=== PATIENT | female | born 1990 | race Caucasian/White ===

== ENCOUNTER 2016-07-14 15:38 | Emergency (ER) | payer BC ==
--- NOTE | 2016-07-14 16:33 | ER Document Report ---
ED Medical Screen (RME) - General Stated Complaint: DIFFICULTY BREATHING Notes: patient is a 26 year old female with LEANN p/w palpitations, h/a, shortness of breath for about one week but worse today I have greeted and performed a rapid initial assessment of this patient. A comprehensive ED assessment and evaluation of the patient, analysis of test results and completion of the medical decision making process will be conducted by additional ED providers. TRAVEL OUTSIDE OF THE [place] IN LAST 30 DAYS: No - Related Data Allergies/Adverse Reactions: No Known Allergies Allergy (Verified 07/14/16 16:28) Past Medical History - Social History Chew tobacco use (# tins/day): No Frequency of alcohol use: None Drug Abuse: None - Past Medical History Cardiac Medical History: Denies: Hx Coronary Artery Disease, Hx Heart Attack, Hx Hypertension Pulmonary Medical History: Denies: Hx Asthma, Hx Bronchitis, Hx COPD, Hx Pneumonia Neurological Medical History: Denies: Hx Cerebrovascular Accident, Hx Seizures Renal/ Medical History: Denies: Hx Peritoneal Dialysis Musculoskeltal Medical History: Denies Hx Arthritis - Immunizations Hx Diphtheria, Pertussis, Tetanus Vaccination: Yes - 15 December 2010 Physical Exam - Vital signs Vitals: Temp Pulse Resp BP Pulse Ox 98.1 F 84 22 H 137/75 H 99 07/14/16 16:00 07/14/16 16:00 07/14/16 16:00 07/14/16 16:00 07/14/16 16:00 Course - Vital Signs Vital signs: Temp Pulse Resp BP Pulse Ox 98.1 F 84 22 H 137/75 H 99 07/14/16 16:00 07/14/16 16:00 07/14/16 16:00 07/14/16 16:00 07/14/16 16:00
[2016-07-14 17:05] LABS: ABSOLUTE EOSINOPHILS # (AUTO) 0.1 10^3/uL (0.0-0.6); ABSOLUTE LYMPHOCYTES (AUTO) 2.1 10^3/uL (0.5-4.7); ABSOLUTE MONOCYTES (AUTO) 0.3 10^3/uL (0.1-1.4); ABSOLUTE NEUT (AUTO) 3.8 10^3/uL (1.7-8.2); BASOPHILS % (AUTO) 0.6 % (0-2); EOSINOPHILS % (AUTO) 1.4 % (0-6); HEMATOCRIT 38.3 % (36.0-47.0); HEMOGLOBIN 13.1 g/dL (12.0-15.5); LYMPHOCYTES % (AUTO) 33.6 % (13-45); MEAN CORPUSCULAR HEMOGLOBIN 29.8 pg (27.0-33.4); MEAN CORPUSCULAR HGB CONC 34.2 g/dL (32.0-36.0); MEAN CORPUSCULAR VOLUME 87 fl (80-97); MONOCYTES % (AUTO) 4.4 % (3-13); RED CELL DISTRIBUTION WIDTH 12.7 % (11.5-14.0); WHITE BLOOD COUNT 6.3 10^3/uL (4.0-10.5)
[2016-07-14 17:44] LABS: ALANINE AMINOTRANSFERASE 31 U/L (9-52); ALBUMIN 4.1 g/dL (3.5-5.0); ALKALINE PHOSPHATASE 40 U/L (38-126); ANION GAP 11 (5-19); ASPARTATE AMINO TRANSFERASE 20 U/L (14-36); BILIRUBIN,TOTAL 0.4 mg/dL (0.2-1.3); BLOOD UREA NITROGEN 16 mg/dL (7-20); CARBON DIOXIDE 26 mmol/L (22-30); CHLORIDE 107 mmol/L (98-107); CREATININE RESULT 0.84 mg/dL (0.52-1.25); GLUCOSE 106 mg/dL (75-110); POTASSIUM 4.1 mmol/L (3.6-5.0); SODIUM 143.9 mmol/L (137-145); TOTAL PROTEIN 7.3 g/dL (6.3-8.2)
--- NOTE | 2016-07-14 18:19 | ER Document Report ---
ED General - General Chief Complaint: Anemia Stated Complaint: DIFFICULTY BREATHING Time seen by provider: 18:14 Mode of Arrival: Ambulatory Information source: Patient, Parent TRAVEL OUTSIDE OF THE [place] IN LAST 30 DAYS: No - HPI Patient complains to provider of: dizziness Onset: Other - Pt. has h/o iron deficiency anemia states that for the past 1-2 days has had episodes of the room spinning around with nausea with some SOB and palpitations. "Feels like a blurry sensation inside my head." - Related Data Allergies/Adverse Reactions: No Known Allergies Allergy (Verified 07/14/16 16:28) Past Medical History - Social History Smoking Status: Never Smoker Cigarette use (# per day): No Chew tobacco use (# tins/day): No Frequency of alcohol use: None Drug Abuse: None Family History: Reviewed & Not Pertinent Patient has suicidal ideation: No Patient has homicidal ideation: No - Past Medical History Cardiac Medical History: Denies: Hx Coronary Artery Disease, Hx Heart Attack, Hx Hypertension Pulmonary Medical History: Denies: Hx Asthma, Hx Bronchitis, Hx COPD, Hx Pneumonia Neurological Medical History: Denies: Hx Cerebrovascular Accident, Hx Seizures Renal/ Medical History: Denies: Hx Peritoneal Dialysis Musculoskeltal Medical History: Denies Hx Arthritis - Immunizations Hx Diphtheria, Pertussis, Tetanus Vaccination: Yes - 15 December 2010 Review of Systems - Review of Systems Constitutional: No symptoms reported EENT: No symptoms reported Cardiovascular: See HPI, Palpitations Respiratory: No symptoms reported Gastrointestinal: No symptoms reported Neurological/Psychological: See HPI -: Yes All other systems reviewed and negative Physical Exam - Vital signs Vitals: Temp Pulse Resp BP Pulse Ox 98.1 F 84 22 H 137/75 H 99 07/14/16 16:00 07/14/16 16:00 07/14/16 16:00 07/14/16 16:00 07/14/16 16:00 - General General appearance: Appears well In distress: None - HEENT Head: Normocephalic Extraocular movements intact: Yes Pupils: PERRL Ears: Normal Tympanic membrane: Normal Sinus: Normal Mouth/Lips: Normal Mucous membranes: Normal Pharynx: Normal Neck: Normal - Respiratory Respiratory status: No respiratory distress Breath sounds: Normal - Cardiovascular Rhythm: Regular Heart sounds: Normal auscultation - Abdominal Inspection: Normal Bowel sounds: Normal Tenderness: Nontender - Neurological Neuro grossly intact: Yes Cognition: Normal Orientation: AAOx4 Speech: Normal Cranial nerves: Normal Cerebellar coordination: Normal Motor strength normal: LUE, RUE, LLE, RLE 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 felt somewhat better at time of d/c -- expressed desire to go home with mom - Vital Signs Vital signs: Temp Pulse Resp BP Pulse Ox 98.1 F 84 22 H 137/75 H 99 07/14/16 16:00 07/14/16 16:00 07/14/16 16:00 07/14/16 16:00 07/14/16 16:00 - Laboratory Result Diagrams: 07/14/16 16:52 07/14/16 16:52 - EKG Interpretation by Fl EKG shows normal: Sinus rhythm Rate: Normal Rhythm: NSR - nsr without acute change Discharge - Discharge Clinical Impression: Vertigo Condition: Stable Disposition: HOME, SELF-CARE Additional Instructions: rest, take meds as prescribed, return if worse Prescriptions: Meclizine HCl [Antivert 25 mg Tablet] 25 mg PO TID PRN #21 tablet PRN Reason:
[2016-07-14 19:16] VITALS: BP 135/72
--- NOTE | 2016-07-14 19:16 | EKG REPORT ---
SEVERITY:- ABNORMAL ECG - SINUS RHYTHM FIRST DEGREE AV BLOCK PROBABLE LEFT ATRIAL ABNORMALITY : Confirmed by: Calixto Robles MD 14-Jul-2016 19:16:16
--- NOTE | 2016-07-17 21:50 | EKG REPORT ---
SEVERITY:- NORMAL ECG - SINUS RHYTHM IRBBB : Confirmed by: Hood Otoole 17-Jul-2016 21:49:56
== END 2016-07-14 19:16 | disposition home or self-care (01) ==
LOC: ER 15:38
DX: R42 Dizziness and giddiness (principal); R11.0 Nausea; R06.02 Shortness of breath; R00.2 Palpitations; Z86.2 Personal history of diseases of the blood and blood-forming organs and certain disorders involving the immune mechanism
CPT/HCPCS: 36415; 80053; 85025; 93005; 93010; 99285

== ENCOUNTER 2016-07-24 20:14 | Emergency (ER) | payer BC ==
[2016-07-24] MEDS ORDERED: HYDROMORPHONE HCL INJ/PF 2 MG/ML AMPULE IV ONE (23:16)
[2016-07-24] MEDS ORDERED: DIAZEPAM 5 MG TABLET PO ONE (23:18)
[2016-07-24] MEDS ORDERED: NORMAL SALINE 1000 ML 1,000 ML IV ONE (23:18)
--- NOTE | 2016-07-24 23:22 | ER Document Report ---
ED General - General Chief Complaint: Back Pain Stated Complaint: BACK PAIN Notes: Patient is a 26-year-old female with past history of chronic iron deficiency requiring iron transfusions who presents with diffuse low back and leg spasms today after receiving an iron infusion. States that she's had similar symptoms in the past with iron infusions but never to this degree of intensity. Nothing improves or worsens this pain which is described as a severe, constant, cramping pain. She has not seen her primary care doctor regarding today's concerns. Denies any weakness, numbness, vomiting or fever. Denies any trauma to the back or legs. TRAVEL OUTSIDE OF THE [place] IN LAST 30 DAYS: No - Related Data Allergies/Adverse Reactions: morphine Allergy (Unknown, Verified 07/24/16 20:45) Past Medical History - General Information source: Patient - Social History Smoking Status: Never Smoker Frequency of alcohol use: None Drug Abuse: None Lives with: Parents Family History: Reviewed & Not Pertinent - Past Medical History Cardiac Medical History: Denies: Hx Coronary Artery Disease, Hx Heart Attack, Hx Hypertension Pulmonary Medical History: Denies: Hx Asthma, Hx Bronchitis, Hx COPD, Hx Pneumonia Neurological Medical History: Reports: Hx Migraine. Denies: Hx Cerebrovascular Accident, Hx Seizures Renal/ Medical History: Denies: Hx Peritoneal Dialysis Musculoskeltal Medical History: Denies Hx Arthritis Surgical Hx: Negative - Immunizations Hx Diphtheria, Pertussis, Tetanus Vaccination: Yes - 15 December 2010 Review of Systems - Review of Systems Notes: Constitutional: Negative for fever. HENT: Negative for sore throat. Eyes: Negative for visual changes. Cardiovascular: Negative for chest pain. Respiratory: Negative for shortness of breath. Gastrointestinal: Negative for abdominal pain, vomiting or diarrhea. Genitourinary: Negative for dysuria. Musculoskeletal: Positive for leg and back spasms Skin: Negative for rash. Neurological: Negative for headaches, weakness or numbness. 10 point ROS negative except as marked above and in HPI. Physical Exam - Vital signs Vitals: Resp Pulse Ox 23 H 98 07/24/16 20:32 07/24/16 20:32 Interpretation: Normal Notes: PHYSICAL EXAMINATION: GENERAL: Appears mildly uncomfortable but in no acute distress HEAD: Atraumatic, normocephalic. EYES: Pupils equal round and reactive to light, extraocular movements intact, sclera anicteric, conjunctiva are normal. ENT: nares patent, oropharynx clear without exudates. Moist mucous membranes. NECK: Normal range of motion, supple without lymphadenopathy LUNGS: Breath sounds clear to auscultation bilaterally and equal. No wheezes rales or rhonchi. HEART: Regular rate and rhythm without murmurs ABDOMEN: Soft, nontender, normoactive bowel sounds. No guarding, no rebound. No masses appreciated. EXTREMITIES: Normal range of motion, her calf muscles are spasming bilaterally. NEUROLOGICAL: No focal neurological deficits. Moves all extremities spontaneously and on command. PSYCH: Normal mood, normal affect. SKIN: Warm, Dry, normal turgor, no rashes or lesions noted. Course - Re-evaluation Re-evalutation: 07/24/16 23:19 Patient presents with diffuse muscle spasms and aches after receiving an iron infusion. States that she's had similar symptoms with a prior infusion but there was also spontaneously. At time of my assessment, patient is tearful and appears to be in discomfort. No distress. She has no midline back tenderness and her clinical symptoms are not consistent with a musculoskeletal back pain suspect this is related to diffuse muscle spasms in the setting of the iron infusion. She will be provided analgesia and basic laboratories will be obtained to exclude rhabdomyolysis. 07/25/16 00:44 Patient has had resolution of her pain at this time. Laboratories unremarkable. At this time will discharge with return precautions and follow-up recommendations. Verbal discharge instructions given a the bedside and opportunity for questions given. Medication warnings reviewed. Patient is in agreement with this plan and has verbalized understanding of return precautions and the need for primary care follow-up in the next 24-72 hours. - Vital Signs Vital signs: Temp Pulse Resp BP Pulse Ox 97.6 F 14 120/67 100 07/25/16 00:57 07/25/16 00:50 07/25/16 00:50 07/25/16 00:50 - Laboratory Result Diagrams: 07/24/16 23:41 07/24/16 23:41 Laboratory results interpreted by me: 07/24/16 07/24/16 23:41 23:41 WBC 13.2 H Hgb 11.8 L Hct 34.7 L Seg Neutrophils % 92.7 H Lymphocytes % 5.8 L Monocytes % 1.5 L Absolute Neutrophils 12.2 H Chloride 109 H Carbon Dioxide 20 L Glucose 133 H Discharge - Discharge Clinical Impression: Muscle spasms of both lower extremities Condition: Good Disposition: HOME, SELF-CARE Additional Instructions: Please return to the emergency room immediately if you experience any concerning symptoms including high fevers, severe headache, chest pain, difficulty breathing, abdominal pain, slurred speech, numbness or weakness in your arms or legs, or any other symptom that concerns you.
[2016-07-24 23:58] LABS: ABSOLUTE LYMPHOCYTES (AUTO) 0.8 10^3/uL (0.5-4.7); ABSOLUTE MONOCYTES (AUTO) 0.2 10^3/uL (0.1-1.4); ABSOLUTE NEUT (AUTO) 12.2 10^3/uL (1.7-8.2); HEMATOCRIT 34.7 % (36.0-47.0); HEMOGLOBIN 11.8 g/dL (12.0-15.5); HGB HCT DIFFERENCE 0.7; LYMPHOCYTES % (AUTO) 5.8 % (13-45); MEAN CORPUSCULAR HEMOGLOBIN 29.4 pg (27.0-33.4); MEAN CORPUSCULAR HGB CONC 34.2 g/dL (32.0-36.0); MEAN CORPUSCULAR VOLUME 86 fl (80-97); MONOCYTES % (AUTO) 1.5 % (3-13); RED BLOOD COUNT 4.02 10^6/uL (3.72-5.28); RED CELL DISTRIBUTION WIDTH 12.9 % (11.5-14.0); SEGMENTED NEUTROPHILS % (AUTO) 92.7 % (42-78); WHITE BLOOD COUNT 13.2 10^3/uL (4.0-10.5)
[2016-07-25 00:24] LABS: ANION GAP 11 (5-19); BLOOD UREA NITROGEN 16 mg/dL (7-20); CARBON DIOXIDE 20 mmol/L (22-30); CHLORIDE 109 mmol/L (98-107); CREATINE KINASE 90 U/L (30-135); GLUCOSE 133 mg/dL (75-110); POTASSIUM 4.3 mmol/L (3.6-5.0); SODIUM 139.8 mmol/L (137-145)
[2016-07-25 00:58] VITALS: BP 120/67
== END 2016-07-25 00:59 | disposition home or self-care (01) ==
LOC: ER 20:14
DX: R25.2 Cramp and spasm (principal); M54.9 Dorsalgia, unspecified; M54.5 Low back pain
CPT/HCPCS: 99284; 96374; 36415; 82550; 84703; 85025; 80048; J1170

== ENCOUNTER → 2016-08-16 | Outpatient (CLI) | payer BC ==
[2016-08-16 10:02] LABS: HEMATOCRIT 36.8 % (36.0-47.0); HEMOGLOBIN 12.5 g/dL (12.0-15.5); HGB HCT DIFFERENCE 0.7; MEAN CORPUSCULAR HEMOGLOBIN 30.2 pg (27.0-33.4); MEAN CORPUSCULAR VOLUME 89 fl (80-97); RED BLOOD COUNT 4.14 10^6/uL (3.72-5.28); RED CELL DISTRIBUTION WIDTH 14.5 % (11.5-14.0); WHITE BLOOD COUNT 5.2 10^3/uL (4.0-10.5)
[2016-08-16 10:10] LABS: ALANINE AMINOTRANSFERASE 34 U/L (9-52); ALBUMIN 4.2 g/dL (3.5-5.0); ALKALINE PHOSPHATASE 44 U/L (38-126); ANION GAP 9 (5-19); ASPARTATE AMINO TRANSFERASE 20 U/L (14-36); BILIRUBIN,TOTAL 0.6 mg/dL (0.2-1.3); BLOOD UREA NITROGEN 17 mg/dL (7-20); CALCIUM 9.8 mg/dL (8.4-10.2); CARBON DIOXIDE 25 mmol/L (22-30); CHLORIDE 109 mmol/L (98-107); CHOLESTEROL 185.38 mg/dL (0-200); CREATININE RESULT 0.64 mg/dL (0.52-1.25); Direct HDL 59 mg/dL (>40); GLUCOSE 89 mg/dL (75-110); POTASSIUM 4.3 mmol/L (3.6-5.0); SODIUM 142.7 mmol/L (137-145); TRIGLYCERIDES 77 mg/dL (<150)
[2016-08-16 10:20] LABS: DIRECT LDL 103 mg/dL (<100)
== END ==
LOC: OD 08:12
PROVIDERS: ATTEND Internal Medicine Cardiovascular Disease
DX: R00.2 Palpitations (principal); I95.9 Hypotension, unspecified
CPT/HCPCS: 36415; 80048; 80061; 80076; 84443; 85027

== ENCOUNTER 2016-09-07 09:23 | Emergency (ER) | payer BC ==
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
[2016-09-07 11:44] VITALS: BP 125/75
== END 2016-09-07 11:34 | disposition home or self-care (01) ==
LOC: ER 09:23
DX: S00.93XA Contusion of unspecified part of head, initial encounter (principal); R51 Headache; V49.40XA Driver injured in collision with unspecified motor vehicles in traffic accident, initial encounter; R42 Dizziness and giddiness; D64.9 Anemia, unspecified
CPT/HCPCS: 70450; 99284

== ENCOUNTER 2018-07-16 11:15 | Emergency (ER) | payer BC, OTHER ==
[2018-07-16] MEDS ORDERED: FENTANYL CITRATE INJ/PF 100 MCG/2 ML AMPUL IV ONE ×2 (11:46→12:27)
[2018-07-16] MEDS ORDERED: ONDANSETRON HCL INJ/PF 4 MG/2 ML SDV IV ONE (11:46)
[2018-07-16] MEDS ORDERED: NORMAL SALINE 1000 ML 1,000 ML IV ONE (11:46)
--- NOTE | 2018-07-16 11:47 | ER Document Report ---
ED Medical Screen (RME) - General Chief Complaint: Lower Abdominal Pain Stated Complaint: ABDOMINAL PAIN Time Seen by Provider: 07/16/18 11:44 Primary Care Provider: ANNABELLA ASHLEY MD [Primary Care Provider] - Follow up as needed Notes: 28 years old female presents today with bleeding per vagina, since this morning with left lower quadrant abdominal pain radiating to the left flank. Pain of 10/10 intensity. Unable to sit down due to pain. The picture she showed looks like she is bleeding from vagina possibly miscarrying. TRAVEL OUTSIDE OF THE [place] IN LAST 30 DAYS: No - Related Data Allergies/Adverse Reactions: No Known Allergies Allergy (Verified 07/16/18 11:23) Past Medical History - Social History Chew tobacco use (# tins/day): No Frequency of alcohol use: None Drug Abuse: None - Past Medical History Cardiac Medical History: Denies: Hx Coronary Artery Disease, Hx Heart Attack, Hx Hypertension Neurological Medical History: Reports: Hx Migraine Renal/ Medical History: Denies: Hx Peritoneal Dialysis Musculoskeltal Medical History: Denies Hx Arthritis - Immunizations Hx Diphtheria, Pertussis, Tetanus Vaccination: Yes - 15 December 2010 Physical Exam - Vital signs Vitals: Temp Pulse Resp BP Pulse Ox 97.5 F 109 H 14 141/77 H 100 07/16/18 11:23 07/16/18 11:23 07/16/18 11:23 07/16/18 11:23 07/16/18 11:23 Course - Vital Signs Vital signs: Temp Pulse Resp BP Pulse Ox 97.5 F 109 H 14 141/77 H 100 07/16/18 11:23 07/16/18 11:23 07/16/18 11:23 07/16/18 11:23 07/16/18 11:23 Doctor's Discharge - Discharge Referrals: ANNABELLA ASHLEY MD [Primary Care Provider] - Follow up as needed
--- NOTE | 2018-07-16 12:29 | ER Document Report ---
ED General - General Chief Complaint: Lower Abdominal Pain Stated Complaint: ABDOMINAL PAIN Time Seen by Provider: 07/16/18 11:44 Primary Care Provider: ANNABELLA ASHLEY MD [Primary Care Provider] - Follow up as needed Notes: 28-year-old female last menstrual period was June 17 presents with hip heavy vaginal bleeding with clots during this morning with escalation of pain from her. To severe left lower quadrant pain pelvic pain radiating to the left back. No dizziness or fainting. No discharge. Not using protection and not not trying to be .? History of right ovarian cyst. TRAVEL OUTSIDE OF THE [place] IN LAST 30 DAYS: No - Related Data Allergies/Adverse Reactions: No Known Allergies Allergy (Verified 07/16/18 11:23) Past Medical History - Social History Smoking Status: Never Smoker Chew tobacco use (# tins/day): No Frequency of alcohol use: None Drug Abuse: None Family History: Reviewed & Not Pertinent Patient has suicidal ideation: No Patient has homicidal ideation: No - Past Medical History Cardiac Medical History: Denies: Hx Coronary Artery Disease, Hx Heart Attack, Hx Hypertension Neurological Medical History: Reports: Hx Migraine Renal/ Medical History: Denies: Hx Peritoneal Dialysis Musculoskeletal Medical History: Denies Hx Arthritis - Immunizations Hx Diphtheria, Pertussis, Tetanus Vaccination: Yes - 15 December 2010 Review of Systems - Review of Systems Notes: REVIEW OF SYSTEMS GEN: Denies fever, chills, weight loss ENT: Denies sore throat, nasal discharge, ear pain EYES: Denies blurry vision, eye pain, discharge CV: Denies chest pain, palpitations, edema RESP: Denies cough, shortness of breath, wheezing GI: Abdominal pain vaginal bleeding MSK: Denies joint pain/swelling, edema, SKIN: Denies rash, skin lesions LYMPH: Denies swollen glands/lymph nodes NEURO: Denies headache, focal weakness or numbness, dizziness PSYCH: Denies depression, suicidal or homicidal ideation PHYSICAL EXAMINATION General: No acute distress, well-nourished Head: Atraumatic, normocephalic ENT: Mouth normal, oropharynx moist, no exudates or tonsillar enlargement Eyes: Conjunctiva normal, pupils equal, lids normal Neck: No JVD, supple, no guarding CVS: Normal rate, regular rhythm, no murmurs Resp: No resp distress, equal and normal breath sounds bilaterally GI: positive guarding on left side of abdomen. Left lower quadrant tenderness/left pelvic tenderness, no tenderness on the right Ext: No deformities, no edema, normal range of motion in upper and lower ext Back: No CVA or midline TTP Skin: No rash, warm Lymphatic: No lymphadeopathy noted Neuro: Awake, alert. Face symmetric. GCS 15. Physical Exam - Vital signs Vitals: Temp Pulse Resp BP Pulse Ox 97.5 F 109 H 14 141/77 H 100 07/16/18 11:23 07/16/18 11:23 07/16/18 11:23 07/16/18 11:23 07/16/18 11:23 Course - Re-evaluation Re-evalutation: 07/16/18 12:28 Pelvic pain with vaginal bleeding, differential includes miscarriage versus ectopic if the patient is , versus ovarian cyst/dysmenorrhea menometrorrhagia if not. ID also a consideration. Patient has already received pain medicine. Ultrasound is ordered by triage physician. 07/16/18 15:42 Pelvic exam shows closed also with some oozing. Very tender in the left adnexa. Committee gonorrhea obtained. Ultrasound is negative. Patient is not . Labs are normal. Patient required multiple doses of narcotics so I consulted MACHINE TOOL REBUILDER at 330 to come evaluate her. Switch to Toradol for pain. Per Dr. Potter's recommendations. - Vital Signs Vital signs: Temp Pulse Resp BP Pulse Ox 97.5 F 109 H 14 141/77 H 100 07/16/18 11:23 07/16/18 11:23 07/16/18 11:23 07/16/18 11:23 07/16/18 11:23 - Laboratory Result Diagrams: 07/16/18 12:13 07/16/18 12:13 Laboratory results interpreted by me: 07/16/18 07/16/18 07/16/18 11:53 12:13 12:13 Seg Neutrophils % 79.7 H Albumin 5.1 H Urine Blood MODERATE H - Diagnostic Test Radiology reviewed: Image reviewed, Reports reviewed Discharge - Discharge Clinical Impression: Vaginal bleeding Condition: Good Disposition: HOME, SELF-CARE Instructions: Vaginal Bleeding ([facility]), Pelvic Pain ([facility]) Additional Instructions: [facility] Prescriptions: Ibuprofen [Motrin 600 mg Tablet] 600 mg PO Q8HP PRN #90 tablet PRN Reason: Referrals: ANNABELLA ASHLEY MD [Primary Care Provider] - Follow up as needed
[2018-07-16 12:35] LABS: ABSOLUTE MONOCYTES (AUTO) 0.2 10^3/uL (0.1-1.4); ABSOLUTE NEUT (AUTO) 5.3 10^3/uL (1.7-8.2); BASOPHILS % (AUTO) 0.7 % (0-2); EOSINOPHILS % (AUTO) 0.7 % (0-6); HEMATOCRIT 39.6 % (36.0-47.0); HEMOGLOBIN 13.5 g/dL (12.0-15.5); LYMPHOCYTES % (AUTO) 15.8 % (13-45); MEAN CORPUSCULAR HEMOGLOBIN 31.2 pg (27.0-33.4); MEAN CORPUSCULAR HGB CONC 34.2 g/dL (32.0-36.0); MEAN CORPUSCULAR VOLUME 91 fl (80-97); MONOCYTES % (AUTO) 3.1 % (3-13); PLATELET COUNT 226 10^3/uL (150-450); RED BLOOD COUNT 4.34 10^6/uL (3.72-5.28); RED CELL DISTRIBUTION WIDTH 12.7 % (11.5-14.0); SEGMENTED NEUTROPHILS % (AUTO) 79.7 % (42-78); TOTAL CELLS COUNTED % (AUTO) 100 %; WHITE BLOOD COUNT 6.6 10^3/uL (4.0-10.5)
[2018-07-16 12:51] LABS: ALANINE AMINOTRANSFERASE 46 U/L (9-52); ALBUMIN 5.1 g/dL (3.5-5.0); ALKALINE PHOSPHATASE 42 U/L (38-126); ANION GAP 12 (5-19); ASPARTATE AMINO TRANSFERASE 32 U/L (14-36); BILIRUBIN,DIRECT 0.1 mg/dL (0.0-0.4); BILIRUBIN,TOTAL 0.5 mg/dL (0.2-1.3); BLOOD UREA NITROGEN 12 mg/dL (7-20); CALCIUM 10.1 mg/dL (8.4-10.2); CARBON DIOXIDE 28 mmol/L (22-30); CHLORIDE 103 mmol/L (98-107); GLUCOSE 91 mg/dL (75-110); SODIUM 142.5 mmol/L (137-145); TOTAL PROTEIN 7.8 g/dL (6.3-8.2)
[2018-07-16 13:01] LABS: APPEARANCE,URINE CLEAR; BILIRUBIN,URINE NEGATIVE (NEGATIVE); COLOR,URINE COLORLESS; GLUCOSE, URINE NEGATIVE (NEGATIVE); KETONES,URINE NEGATIVE (NEGATIVE); LEUKOCYTE ESTERASE,URINE NEGATIVE (NEGATIVE); NITRITE,URINE NEGATIVE (NEGATIVE); PROTEIN,URINE NEGATIVE (NEGATIVE); URINE SPECIFIC GRAVITY 1.002; UROBILINOGEN,URINE NEGATIVE mg/dL (<2.0)
--- NOTE | 2018-07-16 13:43 | RADIOLOGY REPORT (SQ) ---
EXAM DESCRIPTION: U/S NON OB PEL TV W/DOPPLER COMPLETED DATE/TIME: 07/16/2018 1:33 pm REASON FOR STUDY: torsion vs cyst COMPARISON: 12/20/2015 TECHNIQUE: Dynamic and static grayscale images acquired of the pelvis via transvaginal approach and recorded on PACS. Additional selected color Doppler and spectral images recorded. LIMITATIONS: None. FINDINGS: UTERUS: Contour normal. No mass. ENDOMETRIAL STRIPE: No focal or generalized thickening. No masses. CERVIX: No nabothian cysts. RIGHT OVARY AND DOPPLER: Normal size. No worrisome masses. Normal arterial vascular flow without evid ence for torsion. LEFT OVARY AND DOPPLER: Normal size. No worrisome masses. Normal arterial vascular flow without evide nce for torsion. FREE FLUID: None noted. OTHER: No other significant finding. MEASUREMENTS: UTERUS: 9.2 x 5.3 x 4.2 cm ENDOMETRIAL STRIPE: 8 mm RIGHT OVARY: 2.7 x 2.2 x 2.2 cm LEFT OVARY: 2.9 x 1.7 x 1.3 cm IMPRESSION: NORMAL TRANSVAGINAL PELVIC ULTRASOUND. TECHNICAL DOCUMENTATION: JOB ID: [id number] [employer]- All Rights Reserved Reading location - IP/workstation name: [email or web address]
[2018-07-16] MEDS ORDERED: KETOROLAC TROMETHAMINE INJ/PF 30 MG/1 ML SDV IV ONE (15:02)
[2018-07-16 15:03] LABS: RBCS (WET MOUNT) FEW RBCS SEEN; T.VAGINALIS (WET MOUNT) NO TRICHOMONAS SEEN; WBCS (WET MOUNT) NO WBCS SEEN; YEAST (WET MOUNT) NO YEAST SEEN
[2018-07-16 16:41] LABS: CHLAM PCR NOT DETECTED (NOT DETECT); GON PCR NOT DETECTED (NOT DETECT)
[2018-07-16 16:57] VITALS: BP 105/58
== END 2018-07-16 17:00 | disposition home or self-care (01) ==
LOC: ER 11:15
DX: N93.9 Abnormal uterine and vaginal bleeding, unspecified (principal); R10.32 Left lower quadrant pain; R10.2 Pelvic and perineal pain; Z87.42 Personal history of other diseases of the female genital tract
CPT/HCPCS: 99284; 96361; 96374; 96375; 36415; 87086; 87210; 84702; 85025; 81025; 80053; 81001; 87491; 87591; 76830; 93976; J3010; J1885; J2405; J7030

== ENCOUNTER 2018-09-12 11:30 | Day surgery (SDC) | payer OTHER ==
[2018-09-11 10:39] LABS: HEMATOCRIT 40.1 % (36.0-47.0); HEMOGLOBIN 13.9 g/dL (12.0-15.5); MEAN CORPUSCULAR HEMOGLOBIN 31.3 pg (27.0-33.4); MEAN CORPUSCULAR HGB CONC 34.6 g/dL (32.0-36.0); MEAN CORPUSCULAR VOLUME 91 fl (80-97); PLATELET COUNT 204 10^3/uL (150-450); RED BLOOD COUNT 4.43 10^6/uL (3.72-5.28); RED CELL DISTRIBUTION WIDTH 12.6 % (11.5-14.0); WHITE BLOOD COUNT 4.6 10^3/uL (4.0-10.5)
[2018-09-11 10:43] LABS: APPEARANCE,URINE SLIGHTLY-CLOUDY; BILIRUBIN,URINE NEGATIVE (NEGATIVE); COLOR,URINE YELLOW; GLUCOSE, URINE NEGATIVE (NEGATIVE); KETONES,URINE NEGATIVE (NEGATIVE); LEUKOCYTE ESTERASE,URINE NEGATIVE (NEGATIVE); NITRITE,URINE NEGATIVE (NEGATIVE); PROTEIN,URINE NEGATIVE (NEGATIVE); URINE SPECIFIC GRAVITY 1.018; UROBILINOGEN,URINE NEGATIVE mg/dL (<2.0)
[2018-09-11 11:13] LABS: ALANINE AMINOTRANSFERASE 35 U/L (9-52); ALBUMIN 4.4 g/dL (3.5-5.0); ALKALINE PHOSPHATASE 36 U/L (38-126); ANION GAP 5 (5-19); ASPARTATE AMINO TRANSFERASE 23 U/L (14-36); BILIRUBIN,DIRECT 0.2 mg/dL (0.0-0.4); BILIRUBIN,TOTAL 0.4 mg/dL (0.2-1.3); BLOOD UREA NITROGEN 19 mg/dL (7-20); CALCIUM 10.5 mg/dL (8.4-10.2); CARBON DIOXIDE 29 mmol/L (22-30); CHLORIDE 107 mmol/L (98-107); GLUCOSE 99 mg/dL (75-110); POTASSIUM 4.8 mmol/L (3.6-5.0); SODIUM 141.1 mmol/L (137-145); TOTAL PROTEIN 7.5 g/dL (6.3-8.2)
[~2018-09-12 11:30] MED LIST: ACETAMINOPHEN 1,000 MG/100 ML RTUPB IV ONE; CEFAZOLIN 1 GM/D5W RTU 1 GM/50 ML RTUPB IV ONE; CEFAZOLIN 1 GM/D5W RTU 1 GM/50 ML RTUPB IV PRN; DEXAMETHASONE SOD PHOSPHATE INJ 4 MG/1 ML VIAL ONE; FENTANYL CITRATE INJ/PF 250 MCG/5 ML AMPULE ONE; GLYCOPYRROLATE 1 MG/5 ML SYRINGE ONE; HYDROMORPHONE HCL INJ/PF 2 MG/ML AMPULE ONE; LACTATED RINGERS 1000 ML IV PRN; LIDOCAINE 0.5% INJ-PF (5 MG/ML) 50 ML SDV SUBCUT PRN; MIDAZOLAM 2 MG/2 ML INJ ONE; ONDANSETRON HCL INJ/PF 4 MG/2 ML SDV ONE; PHENYLEPHRINE HCL INJ/PF 10 MG/1 ML SDV ONE; PROPOFOL INJ 200 MG/20 ML VIAL IV ONE; ROCURONIUM BROMIDE INJ 50 MG/5 ML VIAL IV ONE
[2018-09-12] MEDS ORDERED: LIDOCAINE 1%/EPINEPHRINE INJ 20 ML VIAL ONE (12:38)
[2018-09-12] MEDS ORDERED: MEPERIDINE HCL/PF INJ 25 MG/1 ML DISP.SYRIN IV PRN (12:48)
[2018-09-12] MEDS ORDERED: DIPHENHYDRAMINE HCL 50 MG/ML VIAL IV PRN (12:48)
[2018-09-12] MEDS ORDERED: FENTANYL CITRATE INJ/PF 100 MCG/2 ML AMPUL IV PRN ×3 (12:48)
[2018-09-12] MEDS ORDERED: MORPHINE SULFATE 10 MG/ML INJ IV PRN (12:48)
[2018-09-12] MEDS ORDERED: PROMETHAZINE HCL INJ 25 MG/1 ML VIAL IV PRN (12:48)
[2018-09-12] MEDS ORDERED: KETOROLAC TROMETHAMINE INJ/PF 30 MG/1 ML SDV ONE (13:54)
--- NOTE | 2018-09-12 14:19 | OPERATIVE REPORT E ---
Operative Report NAME: MALU OTTO : 1990 AGE: 28Y DATE OF SURGERY: 09/12/2018 ROOM: PREOPERATIVE DIAGNOSIS: Abnormal uterine bleeding, chronic pelvic pain. POSTOPERATIVE DIAGNOSIS: Abnormal uterine bleeding, chronic pelvic pain. OPERATION: Transvaginal hysterectomy with bilateral salpingectomy. SURGEON: ALMA WHITLEY M.D. ANESTHESIA: Mitzi Mccann M.D. with general. FINDINGS: A 10-week size uterus with normal ovaries and normal fallopian tubes. COMPLICATIONS: None. ESTIMATED BLOOD LOSS: 100 mL. SPECIMENS REMOVED: Uterus, cervix, and bilateral fallopian tubes. PROCEDURE IN DETAIL: The patient was taken to the operating room, prepared and draped in a normal sterile fashion in the dorsal lithotomy position in the [facility]. Gonsales catheter was placed to gravity. A weighted speculum was placed in the posterior vagina, and a Cheri retractor was placed in the anterior vagina. The cervix was then grasped on its anterior aspect with a single-tooth tenaculum and then injected with approximately 10 mL of lidocaine with epinephrine in a circumferential fashion. The cervix was then scored circumferentially with a 10 blade, and the vaginal mucosa was then dissected away from the uterus sharply using Mayos. The posterior cul-de-sac was then entered sharply and a long weighted speculum was placed in this defect. The anterior cul-de-sac was then entered sharply with Mayos and the [place] retractor was repositioned to hold away the bladder. The uterosacral ligaments were then clamped and cut bilaterally and sutured with 0-Vicryl pop-offs which were marked with a hemostat. The rest of the uterine artery was then transected and ligated using a LigaSure bilaterally until reaching the fundus of the uterus, and the utero-ovarian ligament was then transected using the LigaSure until the specimen was freed, and the specimen was handed off. The left fallopian tube was grasped with a Ana, and this was removed following the mesosalpinx using the LigaSure. Good hemostasis was noted. This procedure was repeated on the right fallopian tube without difficulty until the right fallopian tube was freed and removed off the field. It was noted at this point that there was some oozing from the left vaginal cuff. A vfryts-qk-wplub suture was placed using 0-Vicryl pop-offs to make it hemostatic. The cuff was then reinspected and found to be hemostatic, and there was no further bleeding noted from the pelvic sidewalls. Therefore, the long weighted speculum was removed and the cuff closure was begun using an 0-Vicryl runner in a running fashion. Once the cuff was closed it was noted to have some oozing in the midline. This was made hemostatic with a [id number]-[id number] suture in the midline. The cuff was then reinspected and found to be intact with no evidence of bleeding. The instruments were removed. Sponge, lap, and needle counts were correct x2, and the patient was taken down and taken to recovery in stable condition. DICTATING PHYSICIAN: ALMA WHITLEY M.D. [id number] PHY#: [id number] ID: [id number] JOB#: [id number] ACCT: [id number] cc:ALMA WHITLEY M.D. >
[2018-09-12] MEDS ORDERED: RINGERS SOLUTION,LACTATED 1,000 ML IV PRN (14:27)
[2018-09-12] MEDS ORDERED: IBUPROFEN 800 MG TABLET PO PRN (14:27)
[2018-09-12] MEDS ORDERED: OXYCODONE-ACETAMINOPHEN 5-325 MG TABLET ONE (14:50)
[2018-09-12] MEDS: MORPHINE SULFATE 10 MG/ML INJ IV PRN ×3 (15:14→21:24)
[2018-09-12] MEDS ORDERED: ACETAMINOPHEN 1,000 MG/100 ML RTUPB IV ONE (19:00)
[2018-09-12] MEDS: PROMETHAZINE HCL INJ 25 MG/1 ML VIAL IV PRN (21:37)
[2018-09-13] MEDS: MORPHINE SULFATE 10 MG/ML INJ IV PRN ×2 (04:05→11:33)
[2018-09-13 05:39] LABS: HEMATOCRIT 32.8 % (36.0-47.0); MEAN CORPUSCULAR HEMOGLOBIN 31.9 pg (27.0-33.4); MEAN CORPUSCULAR HGB CONC 35.4 g/dL (32.0-36.0); MEAN CORPUSCULAR VOLUME 90 fl (80-97); PLATELET COUNT 150 10^3/uL (150-450); RED BLOOD COUNT 3.64 10^6/uL (3.72-5.28); RED CELL DISTRIBUTION WIDTH 12.5 % (11.5-14.0)
[2018-09-13 05:41] LABS: HEMOGLOBIN 11.6 g/dL (12.0-15.5); WHITE BLOOD COUNT 9.3 10^3/uL (4.0-10.5)
[2018-09-13] MEDS: KETOROLAC TROMETHAMINE INJ/PF 30 MG/1 ML SDV IV SCH ×2 (07:41→07:42)
[2018-09-13] MEDS: OXYCODONE-ACETAMINOPHEN 5-325 MG TABLET PO PRN ×2 (07:42→14:07)
[2018-09-13] MEDS ORDERED: MEASLES,MUMPS&RUBELLA VACC/PF 0.5 ML VIAL SUBCUT PRN (07:59)
[2018-09-13] MEDS ORDERED: BENZOCAINE/MENTHOL AEROSOL SPRAY 56 ML TOP PRN (07:59)
[2018-09-13] MEDS ORDERED: ACETAMINOPHEN WITH CODEINE #3 TABLET PO PRN (07:59)
[2018-09-13] MEDS ORDERED: DIBUCAINE 1% OINTMENT 56 GM TP PRN (07:59)
[2018-09-13] MEDS ORDERED: DIPH/PERTUSS(ACELL)/TETANUS VAC/PF 0.5 ML SYR (>=10YO) IM PRN (07:59)
[2018-09-13] MEDS ORDERED: ZOLPIDEM TARTRATE 5 MG TABLET PO PRN (07:59)
[2018-09-13] MEDS ORDERED: OXYTOCIN/NORMAL SALINE 20 UNIT/1,000 ML RTUINJ IV PRN (07:59)
[2018-09-13] MEDS: PROMETHAZINE HCL INJ 25 MG/1 ML VIAL IV PRN (09:59)
[2018-09-13] MEDS ORDERED: PRENATAL VITAMIN W DHA CAPSULE PO SCH (10:00)
[2018-09-13] MEDS ORDERED: SENNOSIDES/DOCUSATE 8.6-50 MG 1 EACH TABLET PO SCH (10:00)
[2018-09-13] MEDS ORDERED: DOCUSATE SODIUM 100 MG CAPSULE PO SCH (10:00)
[2018-09-13] MEDS ORDERED: FERROUS SULFATE 325 MG TABLET PO SCH (10:00)
[2018-09-13] MEDS ORDERED: IBUPROFEN 800 MG TABLET PO SCH ×2 (14:00→18:00)
[2018-09-13] MEDS ORDERED: KETOROLAC TROMETHAMINE INJ/PF 30 MG/1 ML SDV IV ONE (14:00)
--- NOTE | 2018-09-13 15:37 | PDOC DISCHARGE SUMMARY ---
General - Admit/Disc Date/PCP Admission Date/Primary Care Provider: ANNABELLA ASHLEY MD Discharge Date: 09/13/18 - Discharge Diagnosis (1) Abnormal uterine and vaginal bleeding, unspecified Is this a current diagnosis for this admission?: Yes (2) Pelvic pain Is this a current diagnosis for this admission?: Yes (3) Anemia Is this a current diagnosis for this admission?: Yes - Additional Information Home Medications: Erenumab-Aooe [Aimovig Autoinjector] 70 mg SQ ASDIR 09/10/18 Norethindrone AC-Eth Estradiol [Loestrin 21 1-20 Tablet] 1 each PO DAILY 09/12/18 History of Present Illness History of Present Illness: MALU OTTO is a 28 year old female Hospital Course Hospital Course: patient underwent TVH w/ b/l salpingectomy yesterday. Has had an unremarkable post operative course with the exception of mild nausea. she is passing flatus and tolerating a regular diet. Physical Exam - Physical Exam Vital Signs: Temp Pulse Resp BP Pulse Ox 98.0 F 90 18 110/68 100 09/13/18 12:28 09/13/18 12:28 09/13/18 12:28 09/13/18 12:28 09/13/18 12:28 Intake & Output 09/12/18 09/13/18 09/14/18 06:59 06:59 06:59 Intake Total 1150 Output Total 1650 Balance -500 Weight 52.16 kg General appearance: PRESENT: no acute distress, cooperative GI/Abdominal exam: PRESENT: soft - nontender and nondistended Result Laboratory Results: 09/13/18 05:00 09/11/18 09:48 09/13/18 05:00 WBC 9.3 D RBC 3.64 L Hgb 11.6 L D Hct 32.8 L MCV 90 MCH 31.9 MCHC 35.4 RDW 12.5 Plt Count 150 Plan Discharge Plan: follow up as scheduled with Dr. Potter. Is to be discharged with Phenergan for nausea and strict precautions. Time Spent: Greater than 30 Minutes
[2018-09-13 15:52] VITALS: BP 112/72
== END 2018-09-13 16:20 | disposition home or self-care (01) ==
LOC: OROUT 11:30 → 2S 14:13 → OROUT 09-13 16:20
PROVIDERS: ATTEND Obstetrics & Gynecology
DX: N93.9 Abnormal uterine and vaginal bleeding, unspecified (principal); N94.6 Dysmenorrhea, unspecified; G89.29 Other chronic pain; R10.2 Pelvic and perineal pain; D64.9 Anemia, unspecified; Z32.02 Encounter for pregnancy test, result negative; N83.8 Other noninflammatory disorders of ovary, fallopian tube and broad ligament
CPT/HCPCS: 86900; 86901; 36415 ×2; 86850; 85027 ×2; 81025; 80053; 81001; 88307 ×2; 58260; J2250; J0690; J3490 ×3; J1100; J3010; J1885 ×2; J2270 ×2; J2370; J2550 ×2; J2405; J7120; J2704; J0131; 944; J1170